=== PATIENT | female | born 2000 | race Caucasian/White ===

== ENCOUNTER 2022-11-20 08:57 | Inpatient (IN) | payer OTHER ==
[2022-11-20 09:40] LABS: Glucose,Whole Blood 83 mg/dL (70-110)
[2022-11-20 09:46] LABS: Appearance,Urine Cloudy (Clear); Bacteria,Urine Rare /hpf; Bilirubin,Urine Negative (Negative); Blood,Urine Negative (Negative); Color,Urine Yellow; Glucose,Urine (UA) Negative (Negative); Ketones,Urine Negative (Negative); Leukocyte Esterase,Urine Large (Negative); Mucus,Urine Rare /hpf; Nitrite,Urine Negative (Negative); Protein,Urine 1+ (Negative); Specific Gravity,Urine 1.014 (1.001-1.035); Squamous Epithelial Cell,Urine 6 /hpf (0-4); Urobilinogen,Urine <2.0 mg/dL (<2.0); WBC,Urine 12 /hpf (0-5)
[2022-11-20 09:53] LABS: Amphetamine Screen,Urine Not Detected (NotDetected); Barbiturate Screen,Urine Not Detected (NotDetected); Benzodiazepines Screen,Urine Not Detected (NotDetected); Cocaine Screen,Urine Not Detected (NotDetected); Methadone Screen, Urine Not Detected (NotDetected); Opiate Screen,Urine Not Detected (NotDetected); Oxycodone Screen, Urine Not Detected (NotDetected); Phencyclidine Screen,Urine Not Detected (NotDetected); Tricyclic Antidepressant,Urine Not Detected (NotDetected); Urn Cannabinoid Scrn Not Detected (NotDetected)
[2022-11-20 09:55] LABS: Creatinine,Urine Random 87.8 mg/dL; Protein/Creatinine Ratio,Urine 0.626
[2022-11-20] MEDS ORDERED: LACTATED RINGERS 1,000 ML IV SCH (10:00)
[2022-11-20 10:01] LABS: Basophils % (A) 0 %; Eosinophils # (A) 0.1 k/uL (0-0.7); Eosinophils % (A) 1 %; HCT 38.6 % (34.0-46.0); HGB 12.4 gm/dL (11.4-16.0); Lymphocytes # (A) 1.6 k/uL (1.0-4.8); Lymphocytes % (A) 13 %; MCH 26.5 pg (25.0-35.0); MCHC 32.2 g/dL (31.0-37.0); MCV 82.5 fL (80.0-100.0); Mean Platelet Volume 7.9; Monocytes # (A) 0.9 k/uL (0-1.0); Monocytes % (A) 7 %; Neutrophils # (A) 9.8 k/uL (1.3-7.7); Neutrophils % (A) 77 %; Platelet Count 476 k/uL (150-450); RBC 4.69 m/uL (3.80-5.40); RDW 15.1 % (11.5-15.5); WBC 12.7 k/uL (4.0-11.0)
--- NOTE | 2022-11-20 10:18 | US ---
EXAMINATION TYPE: US OB >= 14 wk fetus DATE OF EXAM: 11/20/2022 COMPARISON: None CLINICAL HISTORY: No care No care TECHNIQUE: Transabdominal (TA) GESTATIONAL AGE / DATING Physician Established: Not yet established Dates by LMP: LMP unknown Dates by First Scan: No previous this is first scan Dates by Current Scan: (37 weeks/6 days) EDC: 12/05/2022 SURVEY IUP: Single PLACENTA: Anterior PREVIA: No Previa LORNA: 11.3 cm Normal CERVICAL LENGTH (transabdominal: norm > 3.0cm): 2.6 cm L&D RN aware of shortened measurement BIOMETRY PRESENTATION: Vertex BPD: 9.3 cm 38 weeks / 0 days HC: 34.1 cm 39 weeks / 2 days AC: 36.2 cm 40 weeks / 1 days FL: 7.2 cm 36 weeks / 4 days ESTIMATED WEIGHT IN GRAMS: 3665 grams ESTIMATED WEIGHT IN LBS/OZ: 8 lbs. 1 oz. HC/AC: 0.9 Normal FL/AC: 19.8 Abnormal HEART RATE: 132 bpm RHYTHM: Normal Single, viable IUP/ Results given to L&D RN at time of exam Single live Intrauterine gestation. Normal cephalad presentation. biometry measurements are wit hin normal limits. Cervix is difficult to accurately measure due to cephalad presentation But appears shortened towards end of study. No placenta previa. Estimated amniotic fluid index within normal nichols its. IMPRESSION: As above.
[2022-11-20 10:22] LABS: ALT 20 U/L (4-34); AST 24 U/L (14-36); African American GFR (CKD) >90 (>60 ml/min/1.73 sqM); Blood Urea Nitrogen 7 mg/dL (7-17); Glucose 79 mg/dL (74-99); LDH 194 U/L (120-246); Non-African American GFR(CKD) >90 (>60 ml/min/1.73 sqM); Uric Acid 4.6 mg/dL (3.7-7.4)
[2022-11-20] MEDS ORDERED: LIDOCAINE 0.5% (PF) 5 MG/ML (50 ML SDV) SQ PRN (10:35)
[2022-11-20] MEDS ORDERED: CARBOPROST TROMETHAMINE 250 MCG/ML 1 ML AMP IM PRN ×2 (10:35→17:12)
[2022-11-20] MEDS ORDERED: miSOPROStoL 200 MCG TAB PO PRN ×2 (10:35→17:12)
[2022-11-20] MEDS ORDERED: METHYLERGONOVINE 0.2 MG/ML 1 ML AMP IM PRN ×2 (10:35→17:12)
[2022-11-20] MEDS ORDERED: AMPICILLIN 2,000 MG in SODIUM CHLORIDE 0.9% 100 ML IVPB STA (10:35)
[2022-11-20] MEDS ORDERED: TERBUTALINE 1 MG/ML VIAL SQ PRN (10:35)
[2022-11-20] MEDS ORDERED: OXYTOCIN 10 UNIT/ML 1 ML VIAL IM PRN ×2 (10:35→17:12)
[2022-11-20] MEDS ORDERED: TRANEXAMIC ACID IN NACL,ISO-OS 1,000 MG in EMPTY BAG 1 BAG IV PRN ×2 (10:35→17:12)
[2022-11-20] MEDS ORDERED: OXYTOCIN 30 UNITS/500 ML NS 30 UNIT in SALINE 1 500ML.BAG IV SCH ×2 (10:45→18:15)
[2022-11-20] MEDS ORDERED: ROPIVACAINE 5 MG/ML 20 ML AMPULE ONE (12:26)
[2022-11-20] MEDS ORDERED: fentaNYL (PF) 50 MCG/ML 5 ML AMP ONE (12:26)
[2022-11-20] MEDS ORDERED: SODIUM CHLORIDE 0.9% 100 ML BAG ONE ×2 (12:26→17:19)
--- NOTE | 2022-11-20 12:39 | P.HPOB ---
History of Present Illness H&P Date: 11/20/22 Chief Complaint: Abdominal pain, no care This patient is a 22-year-old 1 para 0 female who presents to labor and delivery with complaints of abdominal pain and . Patient states that she's had no care thinks her last menstrual period was sometime in February. She states that she knew she was sometime in March. She has elected not to seek any care for the , but does indicate that she is given the baby up for adoption. Patient states that she has not contacted anybody in regards to this and does not have anything set up for adoption. Patient denies any past medical history. Apparently she is estranged from the father the baby and is present here with her mother Review of Systems Constitutional: Reports as per HPI Genitourinary: Reports Menstruation: Reports amenorrhea Past Medical History Past Medical History: No Reported History History of Any Multi-Drug Resistant Organisms: None Reported Past Surgical History: No Surgical Hx Reported Past Anesthesia/Blood Transfusion Reactions: No Reported Reaction Past Psychological History: Anxiety, Depression Smoking Status: Never smoker Past Drug Use History: None Reported - Past Family History Mother Family Medical History: No Reported History Medications and Allergies Home Medications Medication Instructions Recorded Confirmed Type No Known Home Medications 11/20/22 11/20/22 History Allergies Allergy/AdvReac Type Severity Reaction Status Date / Time No Known Allergies Allergy Verified 11/20/22 09:04 Exam Vital Signs Temp Pulse Resp BP Pulse Ox 11/20/22 11:15 97.9 F 60 17 134/79 98 Intake and Output 11/19/22 11/20/22 11/20/22 22:59 06:59 14:59 Other: Weight 81.647 kg - OBG Physical Exam Abdomen: bowel sounds normal, no diffuse tenderness, no bruit present, no guarding noted, no hepatomegaly, no splenomegaly, no mass Vulva: both: normal Vagina: normal moisture, no discharge Cervix: no lesion (Cervix is 5 cm completely effaced -2 station vertex. AROM shows large amount of thick dark meconium fluid), no discharge Uterus: enlarged Results Ultrasound shows a vertex intrauterine estimated weight 8 lbs. 1 oz. Estimated gestational age 37-6/7 weeks with an EDC of 12/05/2022 Result Diagrams: 11/20/22 09:30 11/20/22 09:30 Abnormal Lab Results - Last 24 Hours (Table) 11/20/22 11/20/22 11/20/22 Range/Units 09:21 09:30 09:30 WBC 12.7 H (4.0-11.0) k/uL Plt Count 476 H (150-450) k/uL Neutrophils # 9.8 H (1.3-7.7) k/uL Creatinine 0.48 L (0.52-1.04) mg/dL Urine Appearance Cloudy H (Clear) Urine Protein 1+ H (Negative) Ur Leukocyte Esterase Large H (Negative) Urine WBC 12 H (0-5) /hpf Ur Squamous Epith Cells 6 H (0-4) /hpf Urine Bacteria Rare H (None) /hpf Urine Mucus Rare H (None) /hpf Assessment and Plan Assessment: This is a 22-year-old 1 para 0 female who presents to labor and delivery with no care and abdominal pain. Based on ultrasound and patient's history she is suspected to be term. On artificial rupture membranes she has thick meconium-stained fluid however heart tones are category 1. Survey Analyst is been made alert of the meconium-stained fluid and the patient's lack of care. Patient also has some elevated blood pressures that indicate mild preeclampsia with an elevated PC ratio but rest of her labs are normal. At this point there is no indication for treatment of her blood pressur e. Patient is in active labor. Patient states the baby is to be given up for adoption however she has made no arrangements for this therefore social work will be counseled. Plan at this time is to anticipate vaginal delivery. Patient understands if any concerns about well-being due to the meconium we will need to proceed with section for delivery. All the patient's questions are answered. (1) No care in current in third trimester Current Visit: Yes Status: Acute Code(s): O09.33 - SUPRVSN OF PREG W INSUFFICIENT ANTENAT CARE, THIRD TRIMESTER SNOMED Code(s): 451563094 (2) Normal labor Current Visit: Yes Status: Acute Code(s): O80 - ENCOUNTER FOR FULL-TERM UNCOMPLICATED DELIVERY; Z37.9 - OUTCOME OF DELIVERY, UNSPECIFIED SNOMED Code(s): 16998247 (3) Meconium in amniotic fluid Current Visit: Yes Status: Acute Code(s): P96.83 - MECONIUM STAINING SNOMED Code(s): 279230975 (4) Preeclampsia Current Visit: Yes Status: Acute Code(s): O14.90 - UNSPECIFIED PRE- ECLAMPSIA, UNSPECIFIED TRIMESTER SNOMED Code(s): 920177419
[2022-11-20] MEDS ORDERED: AMPICILLIN 1,000 MG in SODIUM CHLORIDE 0.9% 50 ML IVPB SCH (15:00)
[2022-11-20 15:46] LABS: Hepatitis B Surface Antigen Nonreactive (Nonreactive)
[2022-11-20] MEDS ORDERED: CITRIC ACID-SODIUM CITRATE 15 ML CUP PO ONE (17:12)
[2022-11-20] MEDS ORDERED: SUCCINYLCHOLINE CHLORIDE 200 MG/10 ML VIAL IV ONE (17:19)
[2022-11-20] MEDS ORDERED: PROPOFOL 10 MG/ML 20 ML VIAL IV ONE (17:19)
[2022-11-20] MEDS ORDERED: ONDANSETRON 4 MG/2 ML VIAL ONE (17:19)
[2022-11-20] MEDS ORDERED: OXYTOCIN 30 UNITS/500 ML NS BAG IV ONE (17:19)
[2022-11-20] MEDS ORDERED: MORPHINE SULFATE (PF) 0.3 MG/0.3 ML SYR ONE (17:19)
[2022-11-20] MEDS ORDERED: HYDROmorphone (PF) 1 MG/ML ONE (17:19)
[2022-11-20] MEDS ORDERED: ceFAZolin 1,000 MG VIAL ONE (17:19)
[2022-11-20] MEDS ORDERED: ONDANSETRON 4 MG/2 ML VIAL IVP PRN (18:12)
[2022-11-20] MEDS ORDERED: LANOLIN CREAM 5 GM TUBE TOPICAL PRN (18:12)
[2022-11-20] MEDS ORDERED: METOCLOPRAMIDE 5 MG/ML 2 ML VIAL IVP PRN (18:12)
[2022-11-20] MEDS ORDERED: NALOXONE 0.4 MG/ML 1 ML VIAL IV PRN ×2 (18:12→18:30)
[2022-11-20] MEDS ORDERED: ZOLPIDEM 5 MG TAB PO PRN (18:12)
[2022-11-20] MEDS ORDERED: diphenhydrAMINE 50 MG/ML 1 ML VIAL IVP PRN (18:12)
[2022-11-20] MEDS ORDERED: diphenhydrAMINE 25 MG CAP PO PRN (18:12)
[2022-11-20] MEDS: LACTATED RINGERS 1,000 ML IV SCH (18:25)
[2022-11-20] MEDS ORDERED: MORPHINE SULFATE 2 MG/ML SYRINGE IVP PRN (18:30)
--- NOTE | 2022-11-20 19:17 | P.OP ---
Date of Procedure: 11/20/22 Preoperative Diagnosis: #1: Intrauterine , unknown gestational age, suspected term. #2: No care #3: Preeclampsia. #4: Active labor #5: Significant vaginal bleeding of unknown etiology remote from delivery. #6: Thick meconium-stained fluid Postoperative Diagnosis: #1: Same. #2: Suspected chorioamnionitis Procedure(s) Performed: Emergent primary low transverse section Anesthesia: GETA Surgeon: Eric Mills Textile Pin Worker #1: Juliet Jerome Estimated Blood Loss (ml): 958 Pathology: other (Placenta) Condition: stable Disposition: floor Indications for Procedure: Please see dictated H&P for intimate details of this patient's admission. In brief summary this is a 22-year-old 1 para 0 female who presented to labor and delivery with no care complaining of abdominal pain. Patient had an ultrasound performed which showed a intrauterine estimated weight 8 pounds. Patient also has some elevated blood pressures and preeclampsia labs were normal, with the exception of an elevated PC ratio.. P atient was suspected to have preeclampsia. Patient also was 3 cm dilated on admission and repeat check shows a be 5 cm dilated in active labor. Patient is artificial rupture membranes for a large amount of thick meconium-stained fluid. Patient was given antibiotics due to unknown group B strep status. Patient's labor progressed she did get an epidural for pain control. Patient got to complete pushes for approximately 1 hour. At this time patient began bleeding briskly bright red from the vagina. The source of this could not be found and patient began having variable decelerations therefore we proceeded immediately with section for delivery. Patient understood this procedure and risks and risks of infection, bleeding, possible injury bowel, bladder, vessels, and/or other organs. All the patient's questions are answered and a written consent is obtained. Operative Findings: This is a viable male infant Apgars 2, 8, 9. Infant weighed 9 pounds. Patient had thick meconium-stained fluid and the amniotic fluid and placenta was malodorous. Description of Procedure: This patient has a Junior catheter placed to straight drain. She is subsequently taken to the operating room where she is laid in the supine position. She is continuing to have bleeding and unfortunately the epidural was insufficient for surgery. At this time we elected proceed with general anesthesia for delivery. An appropriate timeout is done. Patient has a abdominal prep and drape. She then undergoes rapid sequence endotracheal anesthesia. Carbon Paper Machine Operator is present for delivery. With patient asleep scalpels and taken Pfannenstiel skin incision is then made. A second scalpel is taken down to the fascia and the fascia scored with a knife. Fascial incision extended bilaterally using the Gauthier scissors. Fascia is then dissected off the rectus muscles. Rectus muscles are the peritoneum was identified and entered sharply. Peritoneal incision extended superior and inferior without difficulty. Bladder blade is then placed. Bladder peritoneum was taken sharply off the lower uterine segment. Scalpels and taken low transverse uterine incision is made. Using a hemostat, I enter the uterine cavity bluntly. There is loss of odiferous meconium-stained fluid. The uterine incision is extended bluntly. The infant is quite low in the pelvis, and after several attempts we are able to elevate the 's head out of the pelvis. Mouth and nares are bulb suctioned. There is no evidence of a nuchal cord. With gentle fundal pressure we then have delivery the rest of this infant's body. This is a viable male infant Apgars are 2, 8 and, 9. was immediately handed to the 411 directory assistance operator who is present. At this time the placenta is then manually extracted. It is dark green stained and has an odor. Entire uterine cavity is cleared of all debris. Uterine cavity is then closed using 0 Vicryl running locked fashion in 2 layers. Excellent reapproximation is noted. Of note there is some hematuria, however this is thought to be traumatic in nature and there is no evidence of urinary injury. The urine does clear throughout the case. The bladder peritoneum is reapproximated using a 3-0 Vicryl running fashion. Excess fluid is removed from the abdomen and pelvis. Uterus is then placed back into the abdomen. Parietal peritoneum was then closed using 0 Vicryl running fashion. Rectus muscles are reapproximated in 0 Vicryl interrupted fashion. Fascial incision is then closed using 0 PDS. Fascial incision is intact and hemostatic. Subcutaneous tissue is then closed using a 3-0 Vicryl. Skin is and closed using doretha. All counts are correct 3. There are no complications. Mother is awakened from anesthesia and taken to her birthing suite in satisfactory condition and the is taken special care nursery.
[2022-11-20 19:32] LABS: HIV 2 AB Non-Reactive (Non-Reactive); HIV AB P24 Non-Reactive (Non-Reactive); HIV P24 AG Non-Reactive (Non-Reactive)
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
[2022-11-20] MEDS: SENNOSIDES-DOCUSATE SODIUM 1 EACH TAB PO SCH (20:35)
[2022-11-20] MEDS: ACETAMINOPHEN TAB 500 MG TAB PO SCH (20:43)
[2022-11-20] MEDS: IBUPROFEN 600 MG TAB PO SCH (23:34)
[2022-11-21] MEDS: KETOROLAC 15 MG/ML 1 ML VIAL IVP SCH ×4 (00:22→18:23)
[2022-11-21] MEDS: ACETAMINOPHEN TAB 500 MG TAB PO SCH ×4 (02:09→23:55)
[2022-11-21] MEDS: LACTATED RINGERS 1,000 ML IV SCH ×3 (04:12→18:28)
[2022-11-21] MEDS: IBUPROFEN 600 MG TAB PO SCH ×3 (05:49→18:24)
--- NOTE | 2022-11-21 07:07 | P.PN ---
Progress Note - Text Progress Note Date: 11/21/22 Postop day 1 from under General anesthesia with epidural morphine given for postop pain management. Patient is doing well. Pain is well controlled. On visual analog scale 2/10 Mild itching present No nausea or vomiting reported. No Headache or weakness and numbness in the legs. No complications from spinal anesthesia.
[2022-11-21 07:25] LABS: Basophils % (A) 0 %; Eosinophils # (A) 0.1 k/uL (0-0.7); Eosinophils % (A) 0 %; Lymphocytes # (A) 1.9 k/uL (1.0-4.8); Lymphocytes % (A) 11 %; MCH 26.1 pg (25.0-35.0); MCHC 32.2 g/dL (31.0-37.0); Mean Platelet Volume 8.6; Monocytes % (A) 6 %; Neutrophils # (A) 13.5 k/uL (1.3-7.7); Neutrophils % (A) 81 %; Platelet Count 350 k/uL (150-450); RBC 3.46 m/uL (3.80-5.40); RDW 15.3 % (11.5-15.5); WBC 16.8 k/uL (4.0-11.0)
[2022-11-21 07:47] VITALS: RESP 16
[2022-11-21] MEDS: SENNOSIDES-DOCUSATE SODIUM 1 EACH TAB PO SCH ×2 (08:46→23:15)
--- NOTE | 2022-11-21 08:49 | P.PNOBGPC ---
Subjective - Subjective Principal diagnosis: Status post emergent postoperative day #1 Interval history: Patient is doing well. She is tolerating liquids. She is feeling gas moving but has not passed gas yet. Her pain is fairly well controlled at this time. Lochia has been minimal. Baby is in level I nursery and the patient does not desire to see the baby. Patient reports: Reports appetite normal, Reports pain well controlled [place]: other (In level I nursery) Objective - Vital Signs Latest vital signs: Vital Signs Temp Pulse Resp BP Pulse Ox 11/21/22 07:42 98.6 F 74 16 121/74 98 11/21/22 04:00 98.8 F 84 18 120/71 97 11/20/22 23:35 98.4 F 75 18 133/83 97 11/20/22 20:07 97.9 F 64 16 130/76 98 11/20/22 19:50 96.9 F L 73 16 126/80 98 11/20/22 19:38 73 16 126/80 98 11/20/22 19:30 16 99 11/20/22 19:08 72 16 119/72 100 11/20/22 18:53 71 16 125/77 100 11/20/22 18:38 76 16 126/77 100 11/20/22 18:30 71 16 100 11/20/22 18:23 81 16 129/82 11/20/22 18:08 96.9 F L 79 16 113/59 11/20/22 11:15 97.9 F 60 17 134/79 98 Intake and Output 11/20/22 11/21/22 11/21/22 22:59 06:59 14:59 Output Total 7 900 Balance -2096 Output: Urine 1050 900 Estimated Blood Loss 958 Output, Quantitative 89 Blood Loss Other: Voiding Method Indwelling Catheter Indwelling Catheter - Exam Extremities: Present: normal. Absent: tenderness, edema Abdomen: Present: normal appearance, soft (Positive bowel sounds 4). Absent: distention, tenderness Incision: Present: normal, dry, intact. Absent: erythematous Uterus: Present: normal, firm. Absent: tenderness - Labs Labs: Abnormal Lab Results - Last 24 Hours (Table) 11/20/22 11/20/22 11/20/22 Range/Units 09:21 09:30 09:30 WBC 12.7 H (4.0-11.0) k/uL RBC (3.80-5.40) m/uL Hgb (11.4-16.0) gm/dL Hct (34.0-46.0) % Plt Count 476 H (150-450) k/uL Neutrophils # 9.8 H (1.3-7.7) k/uL Creatinine 0.48 L (0.52-1.04) mg/dL Urine Appearance Cloudy H (Clear) Urine Protein 1+ H (Negative) Ur Leukocyte Esterase Large H (Negative) Urine WBC 12 H (0-5) /hpf Ur Squamous Epith Cells 6 H (0-4) /hpf Urine Bacteria Rare H (None) /hpf Urine Mucus Rare H (None) /hpf Rubella IgG Antibody (0.00-10.00) IU/mL 11/20/22 11/21/22 Range/Units 09:30 06:20 WBC 16.8 H (4.0-11.0) k/uL RBC 3.46 L (3.80-5.40) m/uL Hgb 9.0 L D (11.4-16.0) gm/dL Hct 28.0 L (34.0-46.0) % Plt Count (150-450) k/uL Neutrophils # 13.5 H (1.3-7.7) k/uL Creatinine (0.52-1.04) mg/dL Urine Appearance (Clear) Urine Protein (Negative) Ur Leukocyte Esterase (Negative) Urine WBC (0-5) /hpf Ur Squamous Epith Cells (0-4) /hpf Urine Bacteria (None) /hpf Urine Mucus (None) /hpf Rubella IgG Antibody 272.00 H (0.00-10.00) IU/mL Assessment and Plan Assessment: Status post emergent primary low transverse section for delivery of a viable male postoperative day #1 Plan: Continue with postoperative and care today. Will advance diet as tolerated.
[2022-11-22] MEDS: KETOROLAC 15 MG/ML 1 ML VIAL IVP SCH (02:56)
[2022-11-22] MEDS: LACTATED RINGERS 1,000 ML IV SCH (02:56)
[2022-11-22] MEDS: IBUPROFEN 600 MG TAB PO SCH ×3 (02:57→14:57)
[2022-11-22] MEDS: ACETAMINOPHEN TAB 500 MG TAB PO SCH ×3 (06:55→17:29)
[2022-11-22 07:37] LABS: Basophils % (A) 0 %; Eosinophils # (A) 0.2 k/uL (0-0.7); Eosinophils % (A) 2 %; HCT 27.2 % (34.0-46.0); HGB 8.9 gm/dL (11.4-16.0); Lymphocytes # (A) 1.8 k/uL (1.0-4.8); Lymphocytes % (A) 14 %; MCH 27.3 pg (25.0-35.0); MCHC 32.6 g/dL (31.0-37.0); MCV 83.6 fL (80.0-100.0); Mean Platelet Volume 7.8; Monocytes # (A) 0.7 k/uL (0-1.0); Monocytes % (A) 6 %; Neutrophils # (A) 9.4 k/uL (1.3-7.7); Neutrophils % (A) 76 %; Platelet Count 359 k/uL (150-450); RBC 3.26 m/uL (3.80-5.40); RDW 15.2 % (11.5-15.5); WBC 12.4 k/uL (4.0-11.0)
[2022-11-22] MEDS: SENNOSIDES-DOCUSATE SODIUM 1 EACH TAB PO SCH (08:36)
[2022-11-22 09:09] VITALS: BP 126/86; PULSE 72; TEMP 98.5
--- NOTE | 2022-11-22 10:12 | P.DS ---
Providers Date of admission: 11/20/22 10:37 Expected date of discharge: 11/22/22 Attending physician: Eric Mills Primary care physician: Stated None Hospital Course: This is a 22-year-old female 1 para with term who presented in labor with no care. Please see history and physical and operative note for details of patient's admission. Patient underwent a primary emergent section under general anesthesia on 11/20/2022 and delivered a viable male with scores of 2 at 1 minute 8 at 5 minutes and 9 at 10 minutes and infant weight of 9 lbs. 0 oz. Her postoperative and cou rse have been essentially uncomplicated. Lochia has been decreasing. Her pain is been fairly well-controlled with ibuprofen and Tylenol. She is giving the baby up for adoption. Vital signs are stable. Abdomen is soft with fundus firm and nontender. Incision is clean dry and intact with gunjan in place. Extremities show negative Homans. Impression is status post emergency primary low transverse section postoperative day #2. Plan is to discharge home later today. Routine postoperative and instructions are given. She is advised to follow up with Dr. Mills in the office in 1 week for a postoperative check and in 6 weeks for check. She will be given a prescription for ibuprofen. She is advised to call the office if she has any further questions or concerns prior to her postoperative appointment. Gunjan will be removed and Steri-Strips placed prior to discharge. Procedures: Primary low transverse section for delivery of a viable male on 11/20/2022 Patient Condition at Discharge: Stable Plan - Discharge Summary New Discharge Prescriptions: No Action No Known Home Medications Discharge Medication List No Known Home Medications 11/20/22 [History] Follow up Appointment(s)/Referral(s): Eric Mills MD [STAFF PHYSICIAN] - 12/30/22 10:30 am (Post Op Appointment 12-01-2022 at 1:30p.m.) Activity/Diet/Wound Care/Special Instructions: [facility] - P: [phone] Instructions 1. Do not begin any exercise program for 3 weeks. 2. Do not resume sexual relations for 3 weeks or longer if uncomfortable. 3. You may take tub baths or showers at any time. 4. You may use tampons if desired after 3 weeks. 5. Keep the area of episiotomy (stitches) clean and dry. 6. If you are not nursing, wear a good fitting, supportive bra during the day and limit fluid intake for at least 1 week to prevent breast engorgement. 7. Call the office, [phone], within the next week to make appointment for your 6 week checkup if it has not already been made. 8. Report any of the following occurrences to the doctor promptly: a. Heavy, excessive bleeding b. Chills, fever c. Burning or frequency of urination d. Pain or redness and breasts if nursing e. Increasing pain or swelling in episiotomy (stitches). In addition to the above instructions, the following additional should be followed: 1. No heavy lifting or straining (exercising) until after 6 week checkup. 2. Keep abdominal incision clean and dry: You may wear a dressing if more comfortable. 3. Make office appointment for 10 days after going home or as instructed by her doctor. Discharge Disposition: HOME SELF-CARE
[2022-11-24 14:55] LABS: C. trachomatis,PCR Negative (Neg,Equiv); Chlamydia trachomatis Source Urine; N. gonorrhoeae,PCR Negative (Neg,Equiv); Neisseria Source Urine
== END 2022-11-22 18:50 | disposition home or self-care (01) | DRG 540 ==
LOC: FBPOP 08:57 → EEVIPCON 08:57 → 4FBP 10:37
PROVIDERS: ADMIT Obstetrics & Gynecology; ATTEND Obstetrics & Gynecology
PROC: 4A0HXCZ Measurement of Products of Conception, Cardiac Rate, External Approach (ICD-10-PCS; 2022-11-20)
PROC: 10907ZC Drainage of Amniotic Fluid, Therapeutic from Products of Conception, Via Natural or Artificial Opening (ICD-10-PCS; 2022-11-20)
PROC: 10D00Z1 Extraction of Products of Conception, Low, Open Approach (ICD-10-PCS; principal; 2022-11-20 17:30)
DX: O14.04 Mild to moderate pre-eclampsia, complicating childbirth (principal); O77.0 Labor and delivery complicated by meconium in amniotic fluid; O76 Abnormality in fetal heart rate and rhythm complicating labor and delivery; O41.1230 Chorioamnionitis, third trimester, not applicable or unspecified; O99.344 Other mental disorders complicating childbirth; F41.9 Anxiety disorder, unspecified; F32.A Depression, unspecified; Z37.0 Single live birth
CPT/HCPCS: 59025; 76805; 80306; 81001; 82565; 82570; 82947; 83036; 83615; 84156; 84450; 84460; 84520; 84550; 85025; 86762; 86780; 86850; 86900; 86901; 87340; 87390; 87491; 87591; 99215